=== PATIENT | female | born 2000 | race Caucasian/White ===

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

== ENCOUNTER 2018-10-16 19:24 | Emergency (ER) | payer MEDICAID ==
[~2018-10-16] VITALS: Ht 167.6 cm; Wt 71.2 kg
--- NOTE | 2018-10-16 19:49 | NUR ---
MIDABD PAIN, N/V X2 DAYS, RECENT , GIVEN 2 WKS AGO A0, LMP 10/01/17, UNSURE IF AGAIN. STATES SHE HAD SIMILAR SYMPTOMS WITH LAST . NO OTHER COMPLAINTS AT THIS TIME. NO ACUTE DISTRESS NOTED. AT BEDSIDE. READY FOR EVAL.
[2018-10-16 20:11] LABS: BASOPHILS # (AUTO) 0.1 /CMM (0.0-0.2); BASOPHILS % (AUTO) 0.7 % (0.0-2.0); HEMATOCRIT 36 % (33-45); LYMPHOCYTES # (AUTO) 2.3 /CMM (0.8-4.8); LYMPHOCYTES % (AUTO) 25.9 % (20.0-44.0); MEAN CORPUSCULAR HGB CONC 33 g/dl (31.0-36.0); MEAN CORPUSCULAR VOLUME 87 fL (82-100); MONOCYTES # (AUTO) 0.4 /CMM (0.1-1.30); MONOCYTES % (AUTO) 4.9 % (2.0-12.0); NEUTROPHILS % (AUTO) 66.5 % (43.0-81.0); PLATELET COUNT (AUTO) 294 /CMM (150-450)
[2018-10-16 20:20] LABS: CALCIUM, SERUM 9.7 mg/dL (8.5-10.1); CREATININE 0.5 mg/dL (0.6-1.3); POTASSIUM 3.9 mmol/L (3.5-5.1)
[2018-10-16 20:26] LABS: ALBUMIN 4.1 g/dL (3.4-5.0); BILIRUBIN,DIRECT 0.1 mg/dL (0.0-0.2); BILIRUBIN,TOTAL 0.4 mg/dL (0.2-1.0); TOTAL PROTEIN, SERUM 7.8 g/dL (6.4-8.2)
--- NOTE | 2018-10-16 21:25 | NUR ---
QUARRY PLUG AND FEATHER DRILLER AT BEDSIDE
[2018-10-16 22:07] VITALS: BP 114/76
--- NOTE | 2018-10-16 22:07 | NUR ---
Patient discharged to home in stable condition. Written and verbal after care instructions given. Patient verbalizes understanding of instruction.
== END 2018-10-16 22:09 | disposition home or self-care (01) ==
LOC: ER 19:30
DX: O26.891 Other specified pregnancy related conditions, first trimester (principal); O21.9 Vomiting of pregnancy, unspecified; Z3A.01 Less than 8 weeks gestation of pregnancy
CPT/HCPCS: 36415; 76805; 80048; 80076; 83690; 84702; 85025; 99284; A4606

== ENCOUNTER 2018-11-23 18:26 | Emergency (ER) | payer MEDICAID, OTHER ==
[~2018-11-23] VITALS: Ht 162.6 cm; Wt 66.7 kg
--- NOTE | 2018-11-23 19:10 | NUR ---
PATIENT ARRIVED AMBULATORY.
--- NOTE | 2018-11-23 19:10 | NUR ---
PATIENT ARRIVED AMBULATORY. WITH C/O GENERALIZED WEAKNESS, DIZZINESS N/V X 10 DAYS. 10 WEEKS . REPORTS FALLING THIS MORNING AND HITTING HER HEAD. DENIES ANY BLEEDING.
[2018-11-23] MEDS ORDERED: IV NS 0.9% 1,000 ML BAG IV ONE (19:30)
[2018-11-23 19:49] LABS: BASOPHILS % (AUTO) 0.4 % (0.0-2.0); EOSINOPHILS % (AUTO) 1.2 % (0.0-6.0); HEMATOCRIT 38 % (33-45); HEMOGLOBIN 12.8 g/dL (11.5-14.8); LYMPHOCYTES # (AUTO) 2.2 /CMM (0.8-4.8); MEAN CORPUSCULAR HGB CONC 34 g/dl (31.0-36.0); MEAN CORPUSCULAR VOLUME 85 fL (82-100); MONOCYTES # (AUTO) 0.5 /CMM (0.1-1.30); MONOCYTES % (AUTO) 4.3 % (2.0-12.0); NEUTROPHILS # (AUTO) 7.6 /CMM (1.8-8.9); NEUTROPHILS % (AUTO) 73.1 % (43.0-81.0); PLATELET COUNT (AUTO) 261 /CMM (150-450); WHITE BLOOD COUNT (AUTO) 10.5 K/uL (4.3-11.0)
[2018-11-23 19:59] LABS: CREATININE 0.4 mg/dL (0.6-1.3); POTASSIUM 3.5 mmol/L (3.5-5.1)
--- NOTE | 2018-11-23 20:05 | NUR ---
LEFT HAND #20 G INSERTED, 1 LITER NS BOLUS INITIATED
[2018-11-23 20:34] LABS: BILIRUBIN,DIRECT 0.1 mg/dL (0.0-0.2); BILIRUBIN,TOTAL 0.6 mg/dL (0.2-1.0); TOTAL PROTEIN, SERUM 8.3 g/dL (6.4-8.2)
[2018-11-23 20:45] LABS: APPEARANCE,URINE Clear (CLEAR); BILIRUBIN,URINE SMALL (NEGATIVE); BLOOD, URINE Negative Ery/uL (NEGATIVE); COLOR,URINE Yellow (YELLOW); KETONES,URINE >=160 (NEGATIVE); LEUKOCYTE ESTERASE ,URINE Negative (NEGATIVE); NITRITE, URINE Negative (NEGATIVE); PH,URINE 6.5 (5.0-8.0); PROTEIN,URINE Trace mg/dl (NEGATIVE); UGLUCOSE Negative (NEGATIVE); UROBILINOGEN,URINE 0.2 EU/dL (0.2)
[2018-11-23 21:00] LABS: RBC,URINE 0-2 /HPF (0-2); WBC,URINE 0-2 /HPF (0-3)
[2018-11-23 21:01] LABS: BACTERIA,URINE Rare /HPF (None Seen); SQUAMOUS EPITHELIAL CELL,UR Rare /HPF (None Seen)
--- NOTE | 2018-11-23 21:40 | NUR ---
Left hand #20 gauge DC's with cannula intact. Patient discharged to home in stable condition. Written and verbal after care instructions given. Patient verbalizes understanding of instruction.
[2018-11-23 21:42] VITALS: BP 117/84
== END 2018-11-23 21:44 | disposition home or self-care (01) ==
LOC: ER 18:26
DX: O26.891 Other specified pregnancy related conditions, first trimester (principal); R53.1 Weakness; Z3A.10 10 weeks gestation of pregnancy
CPT/HCPCS: 36415; 76805; 80048; 80076; 81001; 84702; 85025; 87086; 87804 ×2; 96360; 99284; J7030; 81000-TC; 87400

== ENCOUNTER 2019-04-22 23:20 | Emergency (ER) | payer OTHER ==
[~2019-04-22] VITALS: Ht 162.6 cm; Wt 60.3 kg
--- NOTE | 2019-04-22 23:40 | NUR ---
PT BIBSELF C/O VAGINAL BLEEDING X1 DAY. DESCRIBED BRIGHT AND DARK RED WITH SMALL CLOTS. DENIES ABDOMINAL CRAMPING, NAUSEA, VOMITTING. PT AAOX4. RESPIRATIONS EVEN AND UNLABORED. SKIN INTACT. ABLE TO AMBULATE WITH STEADY GAIT. WILL CONTINUE TO MONITOR.
[2019-04-23] MEDS ORDERED: IBUPROFEN 400 MG TABLET PO ONE
--- NOTE | 2019-04-23 00:10 | NUR ---
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 URINE COLLECTED AND SENT TO LAB
[2019-04-23] MEDS ORDERED: IBUPROFEN 400 MG TABLET ONE (00:13)
[2019-04-23 00:17] LABS: BASOPHILS % (AUTO) 0.3 % (0.0-2.0); EOSINOPHILS % (AUTO) 1.3 % (0.0-6.0); HEMATOCRIT 38 % (33-45); HEMOGLOBIN 12.8 g/dL (11.5-14.8); LYMPHOCYTES % (AUTO) 21.4 % (20.0-44.0); MEAN CORPUSCULAR HGB CONC 34 g/dl (31.0-36.0); MEAN CORPUSCULAR VOLUME 86 fL (82-100); MONOCYTES # (AUTO) 0.7 /CMM (0.1-1.30); MONOCYTES % (AUTO) 4.9 % (2.0-12.0); NEUTROPHILS # (AUTO) 10.1 /CMM (1.8-8.9); NEUTROPHILS % (AUTO) 72.1 % (43.0-81.0); PLATELET COUNT (AUTO) 243 /CMM (150-450); RED BLOOD CELL COUNT(AUTO) 4.45 MIL/uL (4.0-5.2); WHITE BLOOD COUNT (AUTO) 14.1 K/uL (4.3-11.0)
[2019-04-23 00:20] LABS: APPEARANCE,URINE Slightly Cloudy (CLEAR); BILIRUBIN,URINE SMALL (NEGATIVE); BLOOD, URINE Large Ery/uL (NEGATIVE); COLOR,URINE Brown (YELLOW); KETONES,URINE 15 (NEGATIVE); LEUKOCYTE ESTERASE ,URINE Small (NEGATIVE); NITRITE, URINE Positive (NEGATIVE); PH,URINE 5.5 (5.0-8.0); PROTEIN,URINE >=300 mg/dl (NEGATIVE); UGLUCOSE Negative (NEGATIVE); UROBILINOGEN,URINE 0.2 EU/dL (0.2)
--- NOTE | 2019-04-23 00:20 | NUR ---
ULTRASOUND AT BEDSIDE
[2019-04-23 00:37] LABS: CALCIUM, SERUM 9.4 mg/dL (8.5-10.1); CREATININE 0.6 mg/dL (0.6-1.3); POTASSIUM 3.6 mmol/L (3.5-5.1)
[2019-04-23 01:32] LABS: BACTERIA,URINE Few /HPF (None Seen); RBC,URINE TOO NUMEROUS TO COUN /HPF (0-2); SQUAMOUS EPITHELIAL CELL,UR Few /HPF (None Seen); WBC,URINE 51-80 /HPF (0-3)
--- NOTE | 2019-04-23 01:55 | NUR ---
Patient discharged to home in stable condition. Written and verbal after care instructions given. Patient verbalizes understanding of instruction.Pt ambulatory with a steady gait
[2019-04-23 01:56] VITALS: BP 117/63
== END 2019-04-23 01:56 | disposition home or self-care (01) ==
LOC: ER 23:27
DX: N39.0 Urinary tract infection, site not specified (principal); N94.6 Dysmenorrhea, unspecified
CPT/HCPCS: 36415; 76856-TC; 80048-TC; 81000-TC; 84702-TC; 85025-TC; 85730-TC; 86850-TC; 87086-TC; 87186-TC

== ENCOUNTER 2024-01-10 21:20 | Emergency (ER) | payer SELFPAY ==
[~2024-01-10] VITALS: Ht 162.6 cm; Wt 65.8 kg
[2024-01-10 21:38] VITALS: TEMP 98.7
[2024-01-10 21:59] LABS: BASOPHILS # (AUTO) 0.1 K/uL (0.0-0.2); BASOPHILS % (AUTO) 0.7 % (0.0-2.0); EOSINOPHILS # (AUTO) 0.2 K/uL (0.0-0.7); EOSINOPHILS % (AUTO) 2.3 % (0.0-6.0); HEMATOCRIT 38 % (33-45); HEMOGLOBIN 12.8 g/dL (11.5-14.8); LYMPHOCYTES # (AUTO) 3.1 K/uL (0.8-4.8); MEAN CORPUSCULAR HEMOGLOBIN 29 PG (26.0-33.0); MEAN CORPUSCULAR HGB CONC 34 g/dl (31.0-36.0); MEAN CORPUSCULAR VOLUME 86 fL (82-100); MONOCYTES # (AUTO) 0.6 K/uL (0.1-1.30); MONOCYTES % (AUTO) 6.6 % (2.0-12.0); NEUTROPHILS # (AUTO) 4.9 K/uL (1.8-8.9); NEUTROPHILS % (AUTO) 55.4 % (43.0-81.0); PLATELET COUNT (AUTO) 296 K/uL (150-450); RED BLOOD CELL COUNT(AUTO) 4.34 MIL/uL (4.0-5.2); RED CELL DISTRIBUTION WIDTH 13.7 % (11.5-15.0); WHITE BLOOD COUNT (AUTO) 8.8 K/uL (4.3-11.0)
[2024-01-10 22:04] LABS: APPEARANCE,URINE CLEAR (CLEAR); BILIRUBIN,URINE NEGATIVE (NEGATIVE); BLOOD, URINE 1+ Ery/uL (NEGATIVE); COLOR,URINE YELLOW (YELLOW); KETONES,URINE NEGATIVE (NEGATIVE); LEUKOCYTE ESTERASE ,URINE NEGATIVE (NEGATIVE); NITRITE, URINE NEGATIVE (NEGATIVE); PROTEIN,URINE NEGATIVE (NEGATIVE); UGLUCOSE NEGATIVE (NEGATIVE); UROBILINOGEN,URINE 0.2 EU/dL (0.2)
[2024-01-10 22:09] LABS: PREGNANCY TEST URINE QUAL NEGATIVE (NEGATIVE)
[2024-01-10 22:10] LABS: ADD URINE CULTURE NO; BACTERIA,URINE None seen /HPF (None Seen); WBC,URINE 0-2 /HPF (0-3)
[2024-01-10 22:12] LABS: CALCIUM, SERUM 9.2 mg/dL (8.5-10.1); CREATININE 0.5 mg/dL (0.6-1.3); POTASSIUM 3.3 mmol/L (3.5-5.1)
[2024-01-10 22:19] LABS: BILIRUBIN,DIRECT 0.1 mg/dL (0.0-0.2); BILIRUBIN,TOTAL 0.5 mg/dL (0.2-1.0); TOTAL PROTEIN, SERUM 8.4 g/dL (6.4-8.2)
[2024-01-10] MEDS ORDERED: KETOROLAC TROMETHAMINE INJ 30 MG/ML VIAL ONE (22:38)
[2024-01-10] MEDS ORDERED: ONDANSETRON HCL/PF 4 MG/2 ML VIAL ONE (22:38)
[2024-01-10] MEDS: IV NS 0.9% 1,000 ML BAG IV ONE (23:00)
[2024-01-10] MEDS: ONDANSETRON HCL/PF 4 MG/2 ML VIAL IVP ONE (23:00)
[2024-01-10] MEDS: KETOROLAC TROMETHAMINE 15 MG/ML VIAL IV ONE (23:02)
[2024-01-10] MEDS ORDERED: DEXTROSE 50%-WATER 50 ML DISP.SYRIN ONE (23:30)
[2024-01-10] MEDS: DEXTROSE 50%-WATER 50 ML DISP.SYRIN IVP ONE (23:30)
[2024-01-10] MEDS ORDERED: DOCU-141 PO (23:33)
[2024-01-10] MEDS ORDERED: POLY17PO4 PO (23:33)
[2024-01-10 23:49] VITALS: BP 121/81; O2SAT 99
== END 2024-01-10 23:52 | disposition home or self-care (01) ==
LOC: ER 21:23
DX: K59.00 Constipation, unspecified (principal); E16.2 Hypoglycemia, unspecified; R11.0 Nausea; Z90.49 Acquired absence of other specified parts of digestive tract
CPT/HCPCS: 99285; 74176; 96374; 96361; 96375 ×2; 85025; 80048; 83690; 80076; 84703; 81001; 36415; J1885; J2405; J7030

== ENCOUNTER 2024-02-25 21:28 | Emergency (ER) | payer OTHER ==
[~2024-02-25] VITALS: Ht 162.6 cm; Wt 59.0 kg
[~2024-02-25 21:28] MED LIST: DOCU-141 PO; POLY17PO4 PO
[2024-02-25 21:56] VITALS: TEMP 97.4
[2024-02-25 22:32] LABS: PREGNANCY TEST URINE QUAL NEGATIVE (NEGATIVE)
[2024-02-25] MEDS ORDERED: CT SWABBABLE VALVE TRANS SET 1 EA INFUS.SET MC ONE (22:38)
[2024-02-25] MEDS ORDERED: IOHEXOL-350 100 ML VIAL IV ONE (22:38)
[2024-02-25] MEDS ORDERED: IV NS 0.9% 250 ML IV ONE (22:39)
[2024-02-25 22:40] LABS: BASOPHILS # (AUTO) 0.1 K/uL (0.0-0.2); BASOPHILS % (AUTO) 0.6 % (0.0-2.0); EOSINOPHILS # (AUTO) 0.2 K/uL (0.0-0.7); EOSINOPHILS % (AUTO) 1.8 % (0.0-6.0); HEMATOCRIT 33 % (33-45); HEMOGLOBIN 11.2 g/dL (11.5-14.8); LYMPHOCYTES # (AUTO) 3.7 K/uL (0.8-4.8); LYMPHOCYTES % (AUTO) 32.1 % (20.0-44.0); MEAN CORPUSCULAR HEMOGLOBIN 30 PG (26.0-33.0); MEAN CORPUSCULAR HGB CONC 34 g/dl (31.0-36.0); MEAN CORPUSCULAR VOLUME 88 fL (82-100); MONOCYTES # (AUTO) 0.5 K/uL (0.1-1.30); MONOCYTES % (AUTO) 4.7 % (2.0-12.0); NEUTROPHILS # (AUTO) 7.1 K/uL (1.8-8.9); NEUTROPHILS % (AUTO) 60.8 % (43.0-81.0); PLATELET COUNT (AUTO) 269 K/uL (150-450); RED BLOOD CELL COUNT(AUTO) 3.81 MIL/uL (4.0-5.2); RED CELL DISTRIBUTION WIDTH 13.3 % (11.5-15.0); WHITE BLOOD COUNT (AUTO) 11.6 K/uL (4.3-11.0)
[2024-02-25 22:47] LABS: CALCIUM, SERUM 9.6 mg/dL (8.5-10.1); CARBON DIOXIDE 25 mmol/L (21-32); CHLORIDE 103 mmol/L (98-107); CREATININE 0.6 mg/dL (0.6-1.3); GLUCOSE 100 mg/dL (74-106); POTASSIUM 3.4 mmol/L (3.5-5.1); SODIUM SERUM 137 mmol/L (136-145); UREA NITROGEN, BLOOD 8 mg/dL (7-18)
[2024-02-25] MEDS ORDERED: KETOROLAC TROMETHAMINE 15 MG/ML VIAL ONE (22:48)
[2024-02-25] MEDS ORDERED: ONDANSETRON HCL/PF 4 MG/2 ML VIAL ONE (22:48)
[2024-02-25] MEDS: ONDANSETRON HCL/PF 4 MG/2 ML VIAL IVP ONE (22:52)
[2024-02-25] MEDS: KETOROLAC TROMETHAMINE 15 MG/ML VIAL IV ONE (22:52)
[2024-02-25 23:00] LABS: NT-PRO BNP 13 pg/mL (0-125)
[2024-02-26] MEDS ORDERED: KETO10TA2 PO (00:19)
[2024-02-26 01:05] VITALS: BP 110/75; O2SAT 99
== END 2024-02-26 01:19 | disposition home or self-care (01) ==
LOC: ER 21:31
DX: R09.1 Pleurisy (principal); R07.81 Pleurodynia; R42 Dizziness and giddiness; R20.2 Paresthesia of skin; R11.0 Nausea; Z90.49 Acquired absence of other specified parts of digestive tract
CPT/HCPCS: 99285; 96374; 71275; 96375; 93005; 85025; 80048; 85378; 84703; 36415; 84484; 83880; J2405; J7050; Q9967; J1885